=== PATIENT | female | born 1990 | race African-American/Black ===

== ENCOUNTER 2024-09-13 05:56 | Emergency (ER) | payer SELFPAY ==
--- NOTE | ~2024-09-13 | XR_ITS ---
EXAMINATION: XR chest 1V portable DATE: 09/13/2024 06:29 INDICATION: Chest pain. TECHNIQUE: A single frontal view of the chest was obtained. COMPARISON: None. FINDINGS: There is no pneumonia, pleural effusion, or pneumothorax. The heart size is normal. IMPRESSION: 1. No acute cardiopulmonary disease. Reviewed, dictated and finalized at location A.
--- NOTE | 2024-09-13 05:57 | ECG_ITS ---
Test Date: 2024-09-13 06:09:14 Measurements Intervals [place] Rate: 79 P: 52 MO: 156 QRS: 62 QRSD: 80 T: 48 QT: 388 QTc: 445 Interpretive Statements SINUS RHYTHM No previous ECG available for comparison Electronically Signed On 09-13-2024 12:56:48 CDT by Acacia Gilman M.D.
[2024-09-13 06:07] VITALS: BP 143/103; PULSE 83; RESP 16; TEMP 36.4; O2SAT 100
[2024-09-13 06:33] LABS: Basophils Percent Auto 0.5 % (0.2-1.2); Eosinophils Absolute Auto 0.1 K/mm3 (0-0.3); Hematocrit 41.1 % (37.0-47.0); Immature Granulocyte Absolute 0.01 K/mm3 (0.00-0.031); Immature Granulocyte Percent A 0.2 % (0-0.5); Lymphocytes Absolute Auto 1.19 K/mm3 (0.9-3.2); Lymphocytes Percent Auto 29.7 % (18.3-44.2); Mean Corpuscular HGB Conc 31.6 g/dl (32-36); Mean Corpuscular Hemoglobin 32.2 pg (26-34); Mean Corpuscular Volume 101.7 fl (80-100); Mean Platelet Volume 9.6 fl (7.4-10.4); Monocytes Absolute Auto 0.5 K/mm3 (0.1-0.6); Monocytes Percent Auto 11.5 % (2.6-8.5); Neutrophils Absolute Auto 2.3 K/mm3 (1.3-6.7); Neutrophils Percent Auto 56.1 % (45.5-73.1); Platelet Count Result 278 k/mm3 (150-375); Red Blood Count 4.04 M/mm3 (4.2-5.4); Red Cell Distribution Width 13.5 % (11.5-14.5)
[2024-09-13 07:10] LABS: Influenza A QL RT-PCR Positive (Negative); Influenza B QL RT-PCR Negative (Negative); RSV RNA, RT-PCR Negative (Negative); SARS-CoV-2 RNA PCR Negative (Negative)
--- NOTE | 2024-09-13 07:48 | ED_ITS ---
HPI - Chest Pain General Chief Complaint: Chest Pain Stated Complaint: Chest pain and coughing Time Seen by Provider: 09/13/24 07:04 History of Present Illness HPI narrative: 33-year-old female with no significant pertinent past medical history presenting to the emergency department chief complaint of cough and flu-like symptoms with sick contact exposure. She states she has been having chest pain with cough. No pleuritic component to her chest pain. Her primary bedside is also sick with similar symptoms. No nausea, vomiting, abdominal pain or back pain. She was otherwise in normal state of health. Symptoms going on for about 7 days. Has tried [id number] therapies without any relief of symptoms. Related Data Allergies Allergy/AdvReac Type Severity Reaction Status Date / Time Penicillins Allergy Rash Verified 09/13/24 06:07 Review of Systems 2 Review of Systems: As reviewed above in HPI Exam 2 Narrative: GENERAL: [Well-appearing, well-nourished, and in no acute distress.] HEAD: [Normocephalic, atraumatic.] EYES: [PERRLA and EOMI.] ENT: Nares clear, no rhinorrhea or epistaxis. Mucous membranes moist. NECK: Supple. CHEST: [Clear to auscultation. No respiratory distress.] HEART: [Regular rate and rhythm]. No murmur heard. [Normal peripheral pulses.] ABDOMEN: [Soft, nondistended], [nontender], [No rigidity or guarding] EXTREMITIES: Normal range of motion. [No edema.] SKIN: Warm, dry, no rash. NEURO: [No focal deficits]. Alert and oriented [x3.] PSYCH: [Normal mood and affect.] Course Vital Signs Vital signs: Vital Signs Temperature 36.4 C 09/13/24 06:07 Pulse Rate 83 09/13/24 06:07 Respiratory Rate 16 09/13/24 06:07 Blood Pressure 143/103 H 09/13/24 06:07 Pulse Oximetry 100 09/13/24 06:07 Oxygen Delivery Room Air 09/13/24 06:07 Temperature 36.4 C 09/13/24 06:07 Pulse Rate 72 09/13/24 08:40 Respiratory Rate 18 09/13/24 08:40 Blood Pressure 141/95 H 09/13/24 08:40 Pulse Oximetry 95 09/13/24 08:40 Oxygen Delivery Room Air 09/13/24 06:13 MDM - Chest Pain MDM Narrative Medical decision making narrative: 33-year-old female presenting with cough, congestion and chest pain with coughing. Patient is otherwise healthy without any acute physical or respiratory distress. Vital signs reassuring without any tachycardia, fever or hypoxia. No significant blood pressure elevations. She has clear breath sounds throughout. Seven days of nonproductive cough associated with some chest pain with coughing. Overall suspicion is probably for viral illness such as COVID or influenza. Low suspicion for pneumonia, bronchitis or any other cardiothoracic process such as ACS. Workup was ordered including CBC, CMP, troponin, EKG and chest x-ray. COVID flu and RSV swabs obtained. Workup shows no leukocytosis or anemia. Normal platelet count. Normal coagulation panel. Electrolytes unremarkable. Normal creatinine, normal glucose, normal LFTs. Negative troponin. Patient tested positive for influenza but is outside the window for Tamiflu. Patient has a negative chest x-ray, normal EKG. She is safe and stable for discharge home at this time was given benzonatate for her cough and Toradol for any musculoskeletal aches or pains. She is safe for discharge home at this time. Medical Records Data Attestation: I reviewed the patient's medical records. Lab Data Attestation: I reviewed the patient's lab results. 09/13/24 06:25 09/13/24 08:09 Labs: Lab Results 09/13/24 09/13/24 Range/Units 06:25 08:09 WBC 4.0 L (4.5-10.0) K/mm3 RBC 4.04 L (4.2-5.4) M/mm3 Hgb 13.0 (12.0-15.0) g/dL Hct 41.1 (37.0-47.0) % MCV 101.7 H (80-100) fl MCH 32.2 (26-34) pg MCHC 31.6 L (32-36) g/dl RDW 13.5 (11.5-14.5) % Plt Count 278 (150-375) k/mm3 MPV 9.6 (7.4-10.4) fl Immature Gran % (Auto) 0.2 (0-0.5) % Neut % (Auto) 56.1 (45.5-73.1) % Lymph % (Auto) 29.7 (18.3-44.2) % [place] % (Auto) 11.5 H (2.6-8.5) % Eos % (Auto) 2.0 (0-4.4) % Baso % (Auto) 0.5 (0.2-1.2) % Lymph # (Auto) 1.19 (0.9-3.2) K/mm3 [place] # (Auto) 0.5 (0.1-0.6) K/mm3 Eos # (Auto) 0.1 (0-0.3) K/mm3 Baso # (Auto) 0.0 (0.0-0.1) K/mm3 Abs Immat Gran (auto) 0.01 (0.00-0.031) K/mm3 Absolute Neuts (auto) 2.3 (1.3-6.7) K/mm3 Absolute Nucleated RBC 0.000 (0.0-0.012) K/mm3 Nucleated RBC % 0.0 (0.0-0.2) % PT 14.0 (11.1-14.7) Seconds INR 1.0 APTT 23.0 (22.3-36.8) Seconds Sodium 144 (137-145) mmol/L Potassium 4.0 (3.4-5.0) mmol/L Chloride 111 H (98-107) mmol/L Carbon Dioxide 25 (22-30) mmol/L Anion Gap 8 (4-12) mmol/L BUN < 2 L (7-17) mg/dL Creatinine 0.65 L (0.7-1.0) mg/dL Estim Creat Clear Calc 85 ml/min Estimated GFR > 60 (59 - ) Glucose 85 (65-110) mg/dL Calcium 8.9 (8.4-10.2) mg/dL Total Bilirubin 0.2 (0.2-1.3) mg/dL AST 25 (14-36) U/L ALT 18 (6-35) U/L Alkaline Phosphatase 72 (38-126) U/L Troponin I < 0.012 (0.000-0.034) ng/mL Total Protein 7.0 (6.3-8.2) g/dL Albumin 3.9 (3.5-5.1) g/dL Lipase 190 (23-300) U/L Influenza A (RT-PCR) Positive A (Negative) Influenza B (RT-PCR) Negative (Negative) RSV (RT-PCR) Negative (Negative) SARS-CoV-2 RNA (RT-PCR) Negative (Negative) Imaging Data Attestation: I personally reviewed and interpreted this imaging study as follows: My impression: Impressions Chest X-Ray 09/13/24 06:32 IMPRESSION: 1. No acute cardiopulmonary disease. ECG Data EKG #1: Attestation: I personally reviewed and interpreted this ECG as follows: ECG completion date: 09/13/24 ECG completion time: 06:09 Prior ECG tracings: not available for review Interpretation: No ST segment elevations, depressions or inversions. QTC 445, QRS 80, TX will 79. Normal sinus rhythm. No signs of ST segment changes. No previous EKG for comparison. Overall final interpretation normal sinus rhythm. Discharge Plan Discharge Clinical Impression: Chest pain, Cough, Influenza A Patient Disposition: Home, Self-Care Condition: Stable Instructions: Antibiotic Form, Influenza (ED), Chest Wall Pain (ED) Additional Instructions: You tested positive for the flu. Your cardiac workup and laboratory studies were all unremarkable. No signs of pneumonia. We will send you home with cough medications and medications for the pain in your chest with you cough. Follow- up with regular doctor. Return with any concerns. Patient Language: Samoan Prescriptions: New benzonatate 200 mg capsule 200 mg PO TID PRN (Reason: cough) Qty: 20 0RF ketorolac 10 mg tablet 10 mg PO Q8H PRN (Reason: pain) 5 Days Qty: 20 0RF Rx Instructions: maximum total duration of 5 days from all oral, intranasal, or parenteral formulations Follow-up/Referrals: UNKNOWN,DOCTOR [Primary Care Provider] - Stand Alone Forms: Work/School Release IP Time of Disposition: 08:50 Quality HEART score for chest pain patients History: slightly suspicious ECG: normal Age: < or = to 45 years Risk factors: no risk factors known Troponin: < or = to 1x normal limit Heart score: 0
[2024-09-13 07:51] VITALS: BP 141/103; PULSE 78; RESP 16; O2SAT 99
--- NOTE | 2024-09-13 07:55 | PC.NURSE ---
pt requesting ultra sound for blood draw. pt has been stuck multiple times.
[2024-09-13 08:28] LABS: Alanine Aminotransferase 18 U/L (6-35); Albumin Level 3.9 g/dL (3.5-5.1); Alkaline Phosphatase 72 U/L (38-126); Anion Gap 8 mmol/L (4-12); Aspartate Amino Transferase 25 U/L (14-36); Bilirubin,Total 0.2 mg/dL (0.2-1.3); Calcium 8.9 mg/dL (8.4-10.2); Carbon Dioxide 25 mmol/L (22-30); Chloride 111 mmol/L (98-107); Estimated CRCL calculation 85 ml/min; Estimated Glomerular Filt Rate > 60; Glucose 85 mg/dL (65-110); Lipase 190 U/L (23-300); Sodium 144 mmol/L (137-145)
[2024-09-13 08:29] LABS: Blood Urea Nitrogen < 2 mg/dL (7-17)
[2024-09-13 08:39] LABS: Troponin I < 0.012 ng/mL (0.000-0.034)
[2024-09-13 08:40] VITALS: BP 141/95; PULSE 72; RESP 18; O2SAT 95
[2024-09-13 09:04] VITALS: BP 140/98; PULSE 80; RESP 24; TEMP 36.4; O2SAT 97
== END 2024-09-13 09:06 | disposition home or self-care (01) ==
PROVIDERS: Student in an Organized Health Care Education/Training Program; Emergency Provider Student in an Organized Health Care Education/Training Program
DX: J10.1 Influenza due to other identified influenza virus with other respiratory manifestations (principal); R07.9 Chest pain, unspecified; Z20.822 Contact with and (suspected) exposure to COVID-19
CPT/HCPCS: 36415; 71045; 80053; 83690; 84484; 85025; 85610; 85730; 87637; 93005; 99284